=== PATIENT | female | born 1950 | race Caucasian/White ===

== ENCOUNTER 2018-08-29 18:38 | Inpatient (IN) ==
[2018-08-29] MEDS ORDERED: ALUMINUM/MAGNESIUM SUSP 30 ML UDC PO PRN (22:35)
[2018-08-29] MEDS ORDERED: POLYETHYLENE (MIRALAX) 17 GM PACK PO PRN (22:35)
[2018-08-29] MEDS ORDERED: ACETAMINOPHEN 325 MG TAB PO PRN (22:35)
[2018-08-29] MEDS ORDERED: MAGNESIUM HYDROXIDE SUSP 30 ML UDC PO PRN (22:35)
[2018-08-29] MEDS ORDERED: AMMONIUM LACTATE 12% LOTION 225 GM BTL EXT PRN (22:46)
[2018-08-29] MEDS ORDERED: ONDANSETRON 8MG OD TAB PO PRN (22:46)
[2018-08-29] MEDS ORDERED: OXYCODONE HCL 20 MG/1 ML UDP PO PRN (22:46)
[2018-08-29] MEDS ORDERED: PROCHLORPERAZINE MALEATE 10 MG TAB PO PRN (22:46)
[2018-08-29] MEDS ORDERED: KETOCONAZOLE 2% CR 15 GM TUBE EXT PRN (22:46)
--- NOTE | 2018-08-29 23:02 | History & Physical Report ---
Date of Service August 29, 2018 Assessment & Plan (1) Hyponatremia: * Initially with sodium of 113 earlier today. Treated with 500 mL bolus of normal saline at [facility]. * We will recheck labs. Adjust appropriately. * Will check serum and urine osmolarity to evaluate for possible underlying SIADH. * Evaluate urine sodium. * Fluid restriction in place. * Evaluate random cortisol level as contributing factor secondary to patient's chronic steroid use. * Appreciate nephrology guidance. (2) Non-small cell carcinoma of left lung, stage 4: * No current treatments necessary/scheduled at this point. * This is mostly a secondary condition at this point. Plan to treat hyponatremia and then defer back to patient's primary oncology service. * Do suspect that underlying lung neoplastic process may certainly be causative factor, however. (3) Anxiety: Continue Ativan PRN. (4) Depression: (5) History of DVT (deep vein thrombosis): * Continue home coumadin dosing. * LLE filter in place per patient. * Check INR. (6) GERD (gastroesophageal reflux disease): Continue home Zantac dosing. (7) Hypertension: * No currently scheduled home Rx at this point. Will address as needed. (8) Osteoarthritis: * Patient with chronic pain. * Continue home narcotics as needed. History of Present Illness Primary Care Provider: NO PCP Patient is a pleasant 68-year-old female with a significant past medical history of stage IV non-small cell lung carcinoma of the squamous subtype involving bilateral lung parenchyma who had recently undergone 6 cycles of palliative systemic chemotherapy with carboplatin and Taxol. Repeat PET scan demonstrated worsening underlying neoplastic process. Patient is most recently has been treated with atezolizumab (first treatment last Sunday). She had a follow-up appointment on 08/26, and during assessment labs, she was found to be hyponatremic, however those lab results are not available. She did receive IV normal saline and was discharged home. During follow-up visit today at her oncologist, she had routine labs drawn again. She was found to have a sodium of 113. At that point, it was suggested that she be admitted to [facility] where she currently undergoes treatment. Apparently, the patient requested be closer to home. She went to located emergency department. They were not comfortable to keep the patient at that facility with her sodium levels. They did try to transfer to [facility], however there is no beds. Additionally, they try to transfer to [facility], however she has [facility] insurance which is not except. The patient was accepted at this facility transfer for treatment of her hyponatremia and concerns for SIADH. Upon evaluation, the patient is awake, alert, and oriented. She reports that she has had some persistent nausea and vomiting, however she has been under control with Compazine and Zofran treatments. She underwent MRI recently for diagnosis of possible intracranial process which was found to be unremarkable. She reports she has not had significant nausea and vomiting recently. She does admit to having weakness in her bilateral legs recently. She has had some lightheadedness over the last few days. Otherwise, she denies any headaches, blurry vision, double vision, seizure-like activity, chest pain, palpitations, shortness of breath, abdominal pain. Allergies Allergy/AdvReac Type Severity Reaction Status Date / Time adhesive tape Allergy Unknown Unverified 08/29/18 23:32 alendronate sodium Allergy Unknown Unverified 08/29/18 23:32 [From Fosamax] cefprozil Allergy Unknown Unverified 08/29/18 23:32 cephalexin [From Keflex] Allergy Unknown Unverified 08/29/18 23:32 ciprofloxacin [From Cipro] Allergy Unknown Unverified 08/29/18 23:32 codeine Allergy Unknown Unverified 08/29/18 23:32 hydromorphone [From Dilaudid] Allergy Unknown Unverified 08/29/18 23:32 ketorolac Allergy Unknown Unverified 08/29/18 23:32 meperidine Allergy Unknown Unverified 08/29/18 23:32 miconazole [From Monistat 3] Allergy Unknown Unverified 08/29/18 23:32 morphine Allergy Unknown Unverified 08/29/18 23:32 moxifloxacin [From Avelox] Allergy Unknown Unverified 08/29/18 23:32 omeprazole [From Prilosec] Allergy Unknown Unverified 08/29/18 23:32 Penicillins Allergy Unknown Unverified 08/29/18 23:32 promethazine Allergy Unknown Unverified 08/29/18 23:32 pseudoephedrine Allergy Unknown Unverified 08/29/18 23:32 [From Sudafed] risedronate sodium Allergy Unknown Unverified 08/29/18 23:32 [From Actonel] skin cleanser combination Allergy Unknown Unverified 08/29/18 23:32 no.17 [From Monistat 3] tromethamine Allergy Unknown Unverified 08/29/18 23:32 varenicline [From Chantix] Allergy Unknown Unverified 08/29/18 23:32 Home Medications Home Medications Medication Instructions Recorded Confirmed Type Amlodipine (Norvasc Unknown Dose) #0 11/03/09 History Fosinopril Sodium (Monopril #0 11/03/09 History Unknown Dose) Warfarin Sod (Coumadin Unknown #0 11/03/09 History Dose) atezolizumab DAILY 08/29/18 History butalbital-acetaminophen PO Q4 PRN 08/29/18 History ergocalciferol (vitamin D2) 50,000 unit PO WK 08/29/18 08/29/18 History [Drisdol] gabapentin 300 mg PO QAM 08/29/18 08/29/18 History gabapentin 600 mg PO PM 08/29/18 08/29/18 History lorazepam [Ativan] 1 mg PO TID 08/29/18 08/29/18 History oxycodone 20 mg PO Q8 PRN 08/29/18 08/29/18 History potassium chloride 10 meq PO QAM 08/29/18 08/29/18 History prednisone 5 mg PO QAM 08/29/18 08/29/18 History prochlorperazine maleate See Label Instructions .ROUTE 08/29/18 08/29/18 History [Compazine] .COMPLEX ranitidine HCl [Zantac] PO QPM 08/29/18 History warfarin [Coumadin] PO 08/29/18 History warfarin [Coumadin] PO 08/29/18 History Past Med/Surg History Social History marital status: Unknown Current Living Situation: Family Current Living Situation Comment: home with sone Other Information That Helps Us Care for You: No Feels Safe at Home: Yes Safety Concerns: Feels Safe At This Time Smoking Status: Current every day smoker Tobacco Type: cigarettes Cigarettes per Day: 10 Do You Dip or Chew Tobacco: No Second Hand Exposure: No Tobacco Cessation Education Requested by Patient: No Hx Alcohol Use: No Hx Substance Use: No Beliefs That Will Affect Care: None Communication Ability: Effective Review of Systems A complete 10 point review of systems was reviewed with the patient with pertinent positives and negatives as per history of present illness. All else were negative. Physical Exam 2 Vital Signs (Past 24 Hours): Last Vital Signs Temp 36.4 C L 08/29/18 20:30 Pulse 86 08/29/18 22:31 Resp 22 08/29/18 20:30 BP 167/97 H 08/29/18 20:30 Pulse Ox 97 08/29/18 20:30 Physical Exam: VITAL SIGNS - Vital signs and nursing notes were reviewed. GENERAL - 68-year-old female appearing her stated age who is in no acute distress. Communicates well with provider and answers questions appropriately. SKIN - Without rashes. HEAD - NC/AT. EYES - PERRL with EOMI bilaterally. Sclera anicteric. EARS - No deformities of external structures noted on gross examination bilaterally. NOSE - Midline and without cyanosis. No epistaxis or purulent drainage noted. MOUTH/OROPHARYNX - Without perioral cyanosis. Buccal mucosa pink and dry and without leukoplakia. Tongue midline with equal elevation of palate bilaterally. No tonsillar hypertrophy, erythema, or exudates noted NECK - Neck with FROM. Supple to palpation. No nuchal rigidity. LUNGS - Chest wall symmetric without accessory muscle use, intercostals retractions, or central cyanosis. Normal vesicular breath sounds CTA B/L. No wheezes, rales, or rhonchi appreciated. CARDIAC - RRR with S1/S2. No murmur, rubs, or gallops appreciated. ABDOMEN - Abdominal contour obese without pulsations or visible masses. BS normoactive all four quadrants. No tenderness, palpable masses, hepatosplenomegaly, or ascites noted. EXTREMITIES - No clubbing or peripheral cyanosis. No pretibial edema present. +3 /5 radial and dorsalis pedis pulses palpated throughout. +5/5 strength noted in UE/LE bilaterally. NEUROLOGIC - Cranial nerves II through XII grossly intact. Sensory intact to light touch throughout. Patellar reflexes +2/4. PSYCH - A&Ox3 and cooperates fully with examiner. Pt is very pleasant and interacts well with examiner. Code Status & VTE Plan Code Status FULL NO MECHANICAL VENTILATION VTE Prophylaxis Plan VTE Prophylaxis will be ordered: Yes Supervising Physician Co-Signing Physician Notes Attending addendum: I have physically seen this patient, have supervised the physician assistant associate full professor activities, and agree with the H&P unless as otherwise noted. Assessment and Plan: Symptomatic hyponatremia-- Sodium upon entry labs was 113 at [facility] emergency department, which was primarily treated with 500 mils of normal saline fluid bolus. The patient was then transferred to [facility] for further workup and treatment. We will repeat CBC with differential, chemistry profile, and magnesium level and follow serially. We will add a serum osmolality and urine osmolality to help define the most likely cause of SIADH, associated with non small cell lung cancer. Treat initially with 1500 cc fluid restriction. Consult nephrology. Non-small cell lung cancer of left lung-- Treated at [facility], which will resume after treatment of her primary issue of hyponatremia. Remainder of orders and notations as noted.
[2018-08-29] MEDS ORDERED: PATIENT'S ALLERGY INFO NEEDS ENTERED SCH (23:30)
[2018-08-29 23:58] LABS: Albumin Level 3.2 gm/dl (3.4-5.0); BUN Creatinine Ratio 7.5 (10-20); Bilirubin Direct 0.3 mg/dl (0-0.2); Bilirubin,Total 0.7 mg/dl (0.1-1); Calcium 8.4 mg/dl (8.5-10.1); Creatinine Clr Calc Pharmacy 93.2 ml/min; Est GFR (African American) 102.2; Est GFR (Non-African American) 88.2; Globulin 3.2 gm/dl (2.5-4.0); Magnesium 1.6 mg/dl (1.8-2.4); Phosphorus 3.3 mg/dl (2.5-4.9); Potassium 3.5 mmol/L (3.5-5.1); Total Protein 6.4 gm/dl (6.4-8.2)
[2018-08-30 00:13] LABS: Hematocrit (blood only) 35.8 % (37-47); Hemoglobin 13.3 g/dL (12.0-16.0); Mean Corpuscular Hgb Conc 37.2 g/dL (32-36); Mean Corpuscular Volume 106.5 fL (80-100); Mean Platelet Volume 10.4 fL (7.4-10.4); Platelet Count 70 K/uL (130-400); RDW Coefficient of Variation 13.4 % (11.5-14.5); RDW Standard Deviation 52.1 fL (36.4-46.3); Red Blood Count 3.36 M/uL (4.2-5.4); White Blood Count 4.67 K/uL (4.8-10.8)
[2018-08-30] MEDS ORDERED: OXYCODONE HCL 20 MG/1 ML UDP PO PRN (00:13)
[2018-08-30] MEDS ORDERED: OXYCODONE HCL IR 5 MG TAB (IMMEDIATE RELEASE) PO PRN (00:15)
[2018-08-30 00:16] LABS: Basophils # (auto) 0.01 K/uL (0-0.2); Basophils % (auto) 0.2 %; Eosinophils # (auto) 0.02 K/uL (0-0.5); Eosinophils % (auto) 0.4 %; Immature Granulocytes # (auto) 0.01 K/uL (0.00-0.02); Immature Granulocytes % (auto) 0.2 %; Lymphocytes # (auto) 0.98 K/uL (1.2-3.4); Monocytes # (auto) 0.54 K/uL (0.11-0.59); Monocytes % (auto) 11.6 %; Neutrophils # (auto) 3.11 K/uL (1.4-6.5); Neutrophils % (auto) 66.6 %
[2018-08-30 01:14] LABS: T4 Free Thyroxine 1.35 ng/dl (0.8-1.6)
[2018-08-30] MEDS ORDERED: SODIUM CHLORIDE 1 GM TABLET PO STA (01:27)
[2018-08-30] MEDS ORDERED: TOLVAPTAN 15 MG TABLET PO STA (01:33)
[2018-08-30] MEDS ORDERED: STERILE IV SCH (03:30)
[2018-08-30] MEDS ORDERED: SODI CHLOR IV SCH (03:30)
[2018-08-30] MEDS ORDERED: WATER IV SCH (03:30)
[2018-08-30 06:05] LABS: Hematocrit (blood only) 35.9 % (37-47); Hemoglobin 13.1 g/dL (12.0-16.0); Mean Corpuscular Hgb Conc 36.5 g/dL (32-36); Mean Corpuscular Volume 106.8 fL (80-100); RDW Coefficient of Variation 13.2 % (11.5-14.5); RDW Standard Deviation 51.7 fL (36.4-46.3); Red Blood Count 3.36 M/uL (4.2-5.4); White Blood Count 3.41 K/uL (4.8-10.8)
[2018-08-30 06:12] LABS: Basophils # (auto) 0.01 K/uL (0-0.2); Basophils % (auto) 0.3 %; Eosinophils # (auto) 0.04 K/uL (0-0.5); Eosinophils % (auto) 1.2 %; Lymphocytes # (auto) 1.05 K/uL (1.2-3.4); Lymphocytes % (auto) 30.8 %; Mean Platelet Volume 8.8 fL (7.4-10.4); Monocytes % (auto) 8.8 %; Neutrophils # (auto) 2.01 K/uL (1.4-6.5); Neutrophils % (auto) 58.9 %; Platelet Count 58 K/uL (130-400)
[2018-08-30 06:24] LABS: Prothrombin Time 84.9 Seconds (9.0-12.0)
[2018-08-30 06:28] LABS: INR 9.6 (0.9-1.1)
[2018-08-30 06:33] LABS: BUN Creatinine Ratio 5.5 (10-20); Calcium 8.6 mg/dl (8.5-10.1); Creatinine Clr Calc Pharmacy 77.5 ml/min; Est GFR (African American) 82.8; Est GFR (Non-African American) 71.4; Magnesium 1.8 mg/dl (1.8-2.4); Phosphorus 3.7 mg/dl (2.5-4.9); Potassium 3.7 mmol/L (3.5-5.1)
[2018-08-30] MEDS ORDERED: PHYTONADIONE 10 MG in SODIUM CHLORIDE 0.9% 50 ML IV ONE (06:35)
[2018-08-30] MEDS: DEXTROSE 5% 1,000 ML IV SCH ×2 (07:10→18:01)
[2018-08-30] MEDS: CYCLOBENZAPRINE HCL 5 MG TAB PO SCH ×5 (08:08→20:33)
[2018-08-30] MEDS: PROCHLORPERAZINE MALEATE 10 MG TAB PO PRN (08:08)
[2018-08-30] MEDS: POTASSIUM CHLORIDE 10 MEQ TABCR PO SCH (08:08)
[2018-08-30] MEDS: predniSONE 5 MG TAB PO SCH (08:08)
[2018-08-30] MEDS: GABAPENTIN 300 MG CAP PO SCH ×2 (08:08→20:30)
--- NOTE | 2018-08-30 08:17 | Hospitalist Progress Note ---
Date of Service August 30, 2018 Assessment & Plan (1) Hyponatremia: (1) Hyponatremia: Initially with sodium of 113 as an outpatient 116 in the ER treated with 500 mL bolus of normal saline at [facility]. Given tolvaptan on admission here urine sodium is elevated supporting SIADH or inappropriate manipulation of her sodium. Fluid restriction in place. chronic steroid use she will continue on oral medicines without stress dosing at this time. Appreciate nephrology guidance. On fluid and salt management (2) Non-small cell carcinoma of left lung, stage 4: Do suspect that underlying lung neoplastic process may certainly be causative factor, however. (3) Anxiety: Continue Ativan is on scheduled 1 mg tid at this time plusPRN. (4) Depression: (5) History of DVT (deep vein thrombosis): Continue home coumadin dosing. filter in place per patient. (6) GERD (gastroesophageal reflux disease): Continue home Zantac dosing. (7) Hypertension: No currently scheduled home Rx at this point. Will address as needed. (8) Osteoarthritis: Patient with chronic pain. gabapentin plus prn oxycodone Subjective Patient is covered by a caregiver the bedside she has no complaints or problems at this time her sodium is increasing and she has had no untoward effects from her coagulopathy present on admission Review of Systems ROS: well nourished well developed. No double vision blurry vision No problems with speech or swallowing No palpitations, chest pain or pressure No Wheezing or breathing issues No abdominal pain nausea vomiting diarrhea changes in appetite or weight No burning urine urine frequency or changes in color No focal joint pain or muscle pain No skin rashes or oral lesions No unusual bruising or bleeding No focused back pain or numbness or loss of strength No changes in memory or confusion Physical Exam 2 Vital Signs (Past 24 Hours): Last Vital Signs Temp 36.3 C L 08/30/18 07:45 Pulse 81 08/30/18 07:45 Resp 18 08/30/18 07:45 BP 137/71 08/30/18 07:45 Pulse Ox 95 08/30/18 07:45 The patient appeared well nourished and normally developed. Vital signs as documented. Head exam is unremarkable. No scleral icterus or corneal arcus noted Neck is without jugular venous distension, thyromegaly, or lymphademopathy Lungs are clear to auscultation and percussion. Cardiac exam reveals Rhythm is regular. First and second heart sounds normal. No murmurs, rubs or gallops. Abdominal exam reveals normal bowel sounds, no masses, no organomegaly Extremities are nonedematous and both pedal pulses are normal. Neurologic exam is A&Ox3, no focal deficits, strength is equal bilateral Skin is warm Dry without bruises or lesions
[2018-08-30] MEDS: LORazepam 1 MG TAB PO PRN ×2 (08:39→15:16)
--- NOTE | 2018-08-30 08:48 | Nephrology Consultation ---
Date of Consultation August 30, 2018 Assessment & Plan (1) Hyponatremia: Kiley is a 68-year-old female admitted to the hospital with acute hyponatremia in the setting of known diagnosis of small stage IV non-small cell lung carcinoma, recent immunotherapy with the PD L1 inhibitor and persistent nausea. 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 Recent immunotherapy with PD L1 inhibitor may be a contributing factor as well as it can definitely cause hyponatremia. -- serum sodium improved more than 10 points over last 24 hours after receiving 1 dose of tolvaptan overnight. --agree with continuing on D5 water for now, monitor sodium closely and goal to keep serum sodium next 24 hours to less than 128 --focus on controlling on nausea and pain --if serum sodium stabilize in next few hours, D5 should be discontinued and resume fluid restriction to less than 1500 mL, DC fluid restriction for now as she received Tolvaptan --next immunotherapy will be in 2 weeks, need to make sure serum sodium normalized before that and she will need close monitoring of electrolyte before and after the dose of immunotherapy Thank you for allowing me to participate in your patient's care. It was a pleasure to see Kiley. Will follow (2) Hypertension: (3) Non-small cell carcinoma of left lung, stage 4: History of Present Illness Reason for Consultation: Evaluation and management for hyponatremia. Attending Physician: Steve Marte MD History of Present Illness Kiley Bender is a 68-year-old female with past medical history significant for non-small cell lung carcinoma status post chemotherapy and immunotherapy admitted to the hospital with acute hyponatremia. Nephrology consult was requested to manage hyponatremia. The Electronic medical records including labs and imaging are reviewed in detail during patient's visit. Kiley was diagnosed with stage IV non-small cell lung carcinoma in November 2017. She received 6 cycles of palliative chemotherapy with carboplatin and Taxol. Repeat PET scan showed worsening disease. MRI brain was negative for metastatic disease She was started on immunotherapy with at his [facility], she received 1 dose on 08/26/2018. After the chemotherapy she has been drinking more liquids as she was told. The she has also been having nausea, was on Zofran and Compazine. Yesterday she was seen by her oncologist and found to have acute hyponatremia and went to [facility] where her sodium was 113. She was treated with IV normal saline and transferred to [facility]. Around midnight here at [facility] her sodium was 116. She was given a dose of tolvaptan 15 milligram daily at 1 a.m. serum sodium rapidly increased to 122 in next 5 hours and she was started on D5 at 100 mL/hour starting 7 a.m. this morning. Urine osmolality was relatively high at 338. She continues to have nausea. She has been on fluid restriction since. She has hypertension, seems well controlled on Monopril. Has not been on any thiazide diuretics. Was not taking NSAIDs. No history of diabetes, coronary artery disease or CHF. Allergies Allergy/AdvReac Type Severity Reaction Status Date / Time adhesive tape Allergy Unknown Unverified 08/29/18 23:32 alendronate sodium Allergy Unknown Unverified 08/29/18 23:32 [From Fosamax] cefprozil Allergy Unknown Unverified 08/29/18 23:32 cephalexin [From Keflex] Allergy Unknown Unverified 08/29/18 23:32 ciprofloxacin [From Cipro] Allergy Unknown Unverified 08/29/18 23:32 codeine Allergy Unknown Unverified 08/29/18 23:32 hydromorphone [From Dilaudid] Allergy Unknown Unverified 08/29/18 23:32 ketorolac Allergy Unknown Unverified 08/29/18 23:32 meperidine Allergy Unknown Unverified 08/29/18 23:32 miconazole [From Monistat 3] Allergy Unknown Unverified 08/29/18 23:32 morphine Allergy Unknown Unverified 08/29/18 23:32 moxifloxacin [From Avelox] Allergy Unknown Unverified 08/29/18 23:32 omeprazole [From Prilosec] Allergy Unknown Unverified 08/29/18 23:32 Penicillins Allergy Unknown Unverified 08/29/18 23:32 promethazine Allergy Unknown Unverified 08/29/18 23:32 pseudoephedrine Allergy Unknown Unverified 08/29/18 23:32 [From Sudafed] risedronate sodium Allergy Unknown Unverified 08/29/18 23:32 [From Actonel] skin cleanser combination Allergy Unknown Unverified 08/29/18 23:32 no.17 [From Monistat 3] tromethamine Allergy Unknown Unverified 08/29/18 23:32 varenicline [From Chantix] Allergy Unknown Unverified 08/29/18 23:32 Home Medications Home Medications Medication Instructions Recorded Confirmed Type Amlodipine (Norvasc Unknown Dose) #0 11/03/09 History Fosinopril Sodium (Monopril #0 11/03/09 History Unknown Dose) Warfarin Sod (Coumadin Unknown #0 11/03/09 History Dose) atezolizumab DAILY 08/29/18 History butalbital-acetaminophen PO Q4 PRN 08/29/18 History ergocalciferol (vitamin D2) 50,000 unit PO WK 08/29/18 08/29/18 History [Drisdol] gabapentin 300 mg PO QAM 08/29/18 08/29/18 History gabapentin 600 mg PO PM 08/29/18 08/29/18 History lorazepam [Ativan] 1 mg PO TID 08/29/18 08/29/18 History oxycodone 20 mg PO Q8 PRN 08/29/18 08/29/18 History potassium chloride 10 meq PO QAM 08/29/18 08/29/18 History prednisone 5 mg PO QAM 08/29/18 08/29/18 History prochlorperazine maleate See Label Instructions .ROUTE 08/29/18 08/29/18 History [Compazine] .COMPLEX ranitidine HCl [Zantac] PO QPM 08/29/18 History warfarin [Coumadin] PO 08/29/18 History warfarin [Coumadin] PO 08/29/18 History Patient History Social History Current Living Situation: Family Current Living Situation Comment: home with rodrick Other Information That Helps Us Care for You: No Feels Safe at Home: Yes Safety Concerns: Feels Safe At This Time Smoking Status: Current every day smoker Tobacco Type: cigarettes Cigarettes per Day: 10 Do You Dip or Chew Tobacco: No Second Hand Exposure: No Tobacco Cessation Education Requested by Patient: No Hx Alcohol Use: No Hx Substance Use: No Beliefs That Will Affect Care: None Preferred Language: Norwegian Communication Ability: Effective Windows Mobile Developer Required: No Review of Systems Detailed review of system was otherwise negative except she is extremely tired and anxious with underlying diagnosis. Physical Exam 2 Vital Signs (Past 24 Hours): Last Vital Signs Temp 36.3 C L 08/30/18 07:45 Pulse 81 12/28/18 07:45 Resp 18 08/30/18 07:45 BP 137/71 08/30/18 07:45 Pulse Ox 95 08/30/18 07:45 Physical Exam: GENERAL: Elderly female AAA x 3, pleasant, ill-appearing, not in any distress. HEENT: Atraumatic, normocephalic. NECK: Supple, no JVD, no carotid bruit appreciated. ENT: No sinus tenderness MOUTH and THROAT: Moist oral mucosa, no oral ulcer or pharyngeal erythema RESPIRATORY: Normal breathing efforts, no accessory muscle use, decreased breath sound bilaterally CARDIOVASCULAR: S1, S2 normal, rate rhythm regular. ABDOMEN: Soft, nontender, positive bowel sound. MUSCULOSKELETAL: The the No joint swelling, erythema or tenderness. Normal range of motion. SKIN: No skin rash EXTREMITY: No lower extremity edema NEURO: No gross focal neurological deficit, speech fluent. PSYCHIATRY: Normal mood and judgment
[2018-08-30] MEDS: BUTALBITAL/ACETAMIN/CAFFEINE TAB PO PRN ×2 (11:34→20:00)
[2018-08-30] MEDS ORDERED: WARFARIN SOD 7.5 MG TAB PO SCH (16:00)
[2018-08-30 20:17] LABS: INR 1.2 (0.9-1.1); Prothrombin Time 12.1 Seconds (9.0-12.0)
[2018-08-31 07:02] LABS: Hematocrit (blood only) 34.7 % (37-47); Hemoglobin 12.5 g/dL (12.0-16.0); Mean Corpuscular Volume 110.2 fL (80-100); RDW Coefficient of Variation 13.6 % (11.5-14.5); RDW Standard Deviation 54.5 fL (36.4-46.3); Red Blood Count 3.15 M/uL (4.2-5.4); White Blood Count 3.33 K/uL (4.8-10.8)
[2018-08-31 07:09] LABS: INR 1.1 (0.9-1.1); Prothrombin Time 10.9 Seconds (9.0-12.0)
[2018-08-31 07:29] LABS: Basophils # (auto) 0.02 K/uL (0-0.2); Basophils % (auto) 0.6 %; Eosinophils # (auto) 0.03 K/uL (0-0.5); Eosinophils % (auto) 0.9 %; Lymphocytes # (auto) 0.85 K/uL (1.2-3.4); Lymphocytes % (auto) 25.5 %; Mean Platelet Volume 9.5 fL (7.4-10.4); Monocytes # (auto) 0.42 K/uL (0.11-0.59); Monocytes % (auto) 12.6 %; Neutrophils # (auto) 2.01 K/uL (1.4-6.5); Neutrophils % (auto) 60.4 %; Platelet Count 54 K/uL (130-400); RBC Morphology Unremarkable
[2018-08-31 07:34] LABS: BUN Creatinine Ratio 4.9 (10-20); Calcium 8.7 mg/dl (8.5-10.1); Creatinine Clr Calc Pharmacy 54.2 ml/min; Est GFR (African American) 71.2; Est GFR (Non-African American) 61.5; Magnesium 1.9 mg/dl (1.8-2.4); Phosphorus 3.8 mg/dl (2.5-4.9); Potassium 3.4 mmol/L (3.5-5.1)
[2018-08-31] MEDS: GABAPENTIN 300 MG CAP PO SCH (08:00)
[2018-08-31] MEDS: predniSONE 5 MG TAB PO SCH (08:00)
[2018-08-31] MEDS: PROCHLORPERAZINE MALEATE 10 MG TAB PO PRN (08:00)
[2018-08-31] MEDS: DEXTROSE 5% 1,000 ML IV SCH (08:01)
[2018-08-31] MEDS: POTASSIUM CHLORIDE 10 MEQ TABCR PO SCH (08:01)
[2018-08-31] MEDS: CYCLOBENZAPRINE HCL 5 MG TAB PO SCH (08:01)
--- NOTE | 2018-08-31 08:19 | Hospitalist Progress Note ---
Date of Service August 31, 2018 Assessment & Plan (1) Hyponatremia: * Initially with sodium of 113 as out pt * Evaluate urine sodium, possible underlying SIADH.. * Fluid restriction in place. * Appreciate nephrology guidance. (2) Non-small cell carcinoma of left lung, stage 4: * No current treatments necessary/scheduled at this point. * This is mostly a secondary condition at this point. Plan to treat hyponatremia and then defer back to patient's primary oncology service. * Do suspect that underlying lung neoplastic process may certainly be causative factor, however. (3) Anxiety: Continue Ativan PRN. (4) Depression: (5) History of DVT (deep vein thrombosis): * Continue home coumadin dosing. * LLE filter in place per patient. * Check INR. (6) GERD (gastroesophageal reflux disease): Continue home Zantac dosing. (7) Hypertension: * No currently scheduled home Rx at this point. Will address as needed. (8) Osteoarthritis: * Patient with chronic pain. * Continue home narcotics as needed. Physical Exam 2 Vital Signs (Past 24 Hours): Last Vital Signs Temp 36.6 C 08/31/18 07:00 Pulse 73 08/31/18 07:00 Resp 18 08/31/18 07:00 BP 180/94 H 08/31/18 07:00 Pulse Ox 96 08/31/18 07:00
[2018-08-31] MEDS: BUTALBITAL/ACETAMIN/CAFFEINE TAB PO PRN (08:44)
--- NOTE | 2018-08-31 10:11 | Nephrology Progress Note ---
Date of Service August 31, 2018 Assessment & Plan (1) Hyponatremia: Mrs. Bender was admitted to the hospital with acute hyponatremia in the setting of stage IV non-small cell lung carcinoma, recent immunotherapy with the PD L1 inhibitor and persistent nausea. -- serum sodium is now within a safe range. Patient has no WELLER or muscle weakness. She has resumed her diet -- continue D5 water for now and monitor serum sodium -- reviewed importance of 1.5 L / day oral fluid restrictionn and importance of adding salt to diet. Patient voiced understanding -- next immunotherapy scheduled for 2 weeks. Patient should be assessed by her Oncologist within the next 5 - 7 days to ensure that electrolyte balance is acceptable prior to further therapy (2) Hypertension: (3) Non-small cell carcinoma of left lung, stage 4: Subjective Mrs. Bender was seen & examined in her hospital room this morning. She reports improved strength and good appetite. She hopes to be discharged to home today. Respiratory: no dyspnea Cardiovascular: no chest pain Gastrointestinal: no abdominal pain and no nausea Physical Exam 2 Vital Signs (Past 24 Hours): Last Vital Signs Temp 36.6 C 08/31/18 07:00 Pulse 73 08/31/18 07:00 Resp 18 08/31/18 07:00 BP 180/94 H 08/31/18 07:00 Pulse Ox 96 08/31/18 07:00 Respiratory: normal respiratory effort, lungs clear to auscultation Cardiovascular: RRR, no murmur, no edema Gastrointestinal (Abdomen): normal bowel sounds, soft, nontender, no hepatosplenomegaly Results & Data Laboratory Results Laboratory Tests 08/31/18 08/31/18 06:46 06:46 WBC 3.33 L Hgb 12.5 Hct 34.7 L Plt Count 54 L Sodium 129 L Potassium 3.4 L Chloride 92 L Carbon Dioxide 30 BUN 5 L Creatinine 0.94 Calcium 8.7 Phosphorus 3.8 Magnesium 1.9
[2018-08-31] MEDS ORDERED: LISINOPRIL 5 MG TAB PO ONE (11:09)
[2018-08-31 11:41] VITALS: BP 155/78; TEMP 97.7; O2SAT 97
[2018-08-31 11:50] VITALS: PULSE 75
--- NOTE | 2018-08-31 13:35 | Discharge Summary ---
Date of Service August 31, 2018 Principal Diagnosis hyponatremia, siadh, coagulopathy Discharge Exam The patient appeared chronically ill with alopecia Vital signs as documented. Head exam is with alopecia, no scleral icterus or corneal arcus noted Neck is without jugular venous distension, thyromegaly, or lymphademopathy Lungs are clear to auscultation and percussion. Cardiac exam reveals Rhythm is regular. Systolic murmur Abdominal exam reveals normal bowel sounds, no masses, no organomegaly Extremities are mildly edematous and both pedal pulses are normal. Neurologic exam is A&Ox3, no focal deficits, strength is equal bilateral Skin is warm Dry without bruises or lesions Discharge Data Allergies Allergy/AdvReac Type Severity Reaction Status Date / Time adhesive tape Allergy Unknown Unverified 08/29/18 23:32 alendronate sodium Allergy Unknown Unverified 08/29/18 23:32 [From Fosamax] cefprozil Allergy Unknown Unverified 08/29/18 23:32 cephalexin [From Keflex] Allergy Unknown Unverified 08/29/18 23:32 ciprofloxacin [From Cipro] Allergy Unknown Unverified 08/29/18 23:32 codeine Allergy Unknown Unverified 08/29/18 23:32 hydromorphone [From Dilaudid] Allergy Unknown Unverified 08/29/18 23:32 ketorolac Allergy Unknown Unverified 08/29/18 23:32 meperidine Allergy Unknown Unverified 08/29/18 23:32 miconazole [From Monistat 3] Allergy Unknown Unverified 08/29/18 23:32 morphine Allergy Unknown Unverified 08/29/18 23:32 moxifloxacin [From Avelox] Allergy Unknown Unverified 08/29/18 23:32 omeprazole [From Prilosec] Allergy Unknown Unverified 08/29/18 23:32 Penicillins Allergy Unknown Unverified 08/29/18 23:32 promethazine Allergy Unknown Unverified 08/29/18 23:32 pseudoephedrine Allergy Unknown Unverified 08/29/18 23:32 [From Sudafed] risedronate sodium Allergy Unknown Unverified 08/29/18 23:32 [From Actonel] skin cleanser combination Allergy Unknown Unverified 08/29/18 23:32 no.17 [From Monistat 3] tromethamine Allergy Unknown Unverified 08/29/18 23:32 varenicline [From Chantix] Allergy Unknown Unverified 08/29/18 23:32 Consultations 08/29/18 23:56 Consult Nephrology Routine Hospital Course (1) Hyponatremia: * Initially with sodium of 113 as out pt * Evaluated urine sodium, possible underlying SIADH.. * Fluid restriction in place I provided education on free water intake and we provided a printout on treatment of low sodium at the time of discharge. * Appreciate nephrology guidance patient is requesting follow-up with nephrology. 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 (4) Depression: (5) History of DVT (deep vein thrombosis): * Continue home coumadin dosing. * LLE filter in place per patient. * given her coagulopathy will have only out on 5 mg daily with outpt recheck on 09/02 and 09/04 (6) GERD (gastroesophageal reflux disease): Continue home Zantac dosing. (7) Hypertension: * will resume monopril and amilodipine at home (8) Osteoarthritis: * Patient with chronic pain. * Continue home narcotics as needed. Total Time Total Time Spent Total Time Spent (In Minutes): greater than 30 minutes were required to prepare discharge Discharge Plan Discharge Items Patient Disposition: Home - Home Health Services Reason For Visit: SEVERE HYPONATREMIA,SMALL CELL LUNG CANCER Discharge Diagnosis: hyponatremia Discharge Goals: Decrease discomfort and Diagnostic testing Activity: Resume your previous activity Non-emergency contact: Primary Care Provider Call non-emergency contact if: you have any medication questions Follow-up/Referrals: Caryl Veloz [Primary Care Provider] - Diet: Regular Addtl Provider Instructions: . please have some blood work checked on 09/02 And 09/04/[address] to have it checked, this is for your coumadin and your sodium Prescriptions: Continue Amlodipine (Norvasc Unknown Dose) tablet Qty: 0 RF: 0 Fosinopril Sodium (Monopril Unknown Dose) tablet Qty: 0 RF: 0 lorazepam [Ativan] 1 mg Tablet 1 mg PO TID RF: 0 butalbital-acetaminophen 25-325 mg Tablet PO Q4 PRN (Reason: other) RF: 0 prochlorperazine maleate [Compazine] 10 mg Tablet See Label Instructions .ROUTE .COMPLEX RF: 0 ergocalciferol (vitamin D2) [Drisdol] 50,000 unit Capsule 50,000 unit PO WK RF: 0 gabapentin 300 mg Capsule 300 mg PO QAM RF: 0 gabapentin 600 mg Tablet 600 mg PO PM RF: 0 oxycodone 20 mg Tablet 20 mg PO Q8 PRN (Reason: no) RF: 0 prednisone 5 mg PO QAM RF: 0 ranitidine HCl [Zantac] 300 mg Tablet PO QPM RF: 0 Changed warfarin [Coumadin] 5 mg tablet 5 mg PO DAILY Qty: 0 RF: 0 Discontinued Warfarin Sod (Coumadin Unknown Dose) tablet Qty: 0 RF: 0 atezolizumab 1,200 mg/20 mL (60 mg/mL) Solution DAILY RF: 0 warfarin [Coumadin] 7.5 mg Tablet PO RF: 0 potassium chloride 10 meq PO QAM RF: 0 Stand-Alone Forms: [facility]/Other Patient Handouts: Hyponatremia Dc Discharge Orders: Discharge Order (Routine); Ordered 08/31/18 Ordered By: Steve Marte Admission Data Admit Date/Time: 08/29/18 20:38 Attending Provider: Steve Marte Admit Provider: Segundo Camarillo Primary Care Provider: Caryl Veloz Other Providers: Segundo Camarillo ; Destiny West Service: Telemetry Other Interventions: Discharge Summary Assessment (RN) Last Done: 08/31/18 11:49 DC Date/Time DO NOT enter until pt leaves facility: 08/31/18 12:26
[2018-09-01] MEDS ORDERED: AMLODIPINE BESYLATE 5 MG TAB PO SCH (09:00)
[2018-09-01] MEDS ORDERED: WARFARIN SOD 5 MG TAB PO SCH (16:00)
== END 2018-08-31 12:26 | disposition home or self-care (01) | DRG 644 ==
LOC: SUATTDRO 20:38 → 2S 20:38